=== PATIENT | male | born 1990 | race Caucasian/White ===

== ENCOUNTER 2018-11-25 04:46 | Inpatient (IN) | payer OTHER ==
[~2018-11-25] VITALS: Ht 172.7 cm; Wt 76.0 kg
[2018-11-25 04:54] VITALS: Ht 172.7 cm; Wt 76.0 kg
[2018-11-25 05:24] LABS: PLATELET COUNT 292 x10^3mcL (130-400); RED CELL DISTRIBUTION WIDTH 12.9 % (11.5-14.5)
[2018-11-25 05:39] LABS: BAND NEUTROPHIL 7 % (0-10); MONOCYTE 2 % (0-7); SEGMENTED NEUTROPHILS 85 % (37-75)
[2018-11-25 05:45] LABS: rbc morphology (normal/abnorm) ABNORMAL (NORMAL)
[2018-11-25 05:46] LABS: PLATELET MORPHOLOGY PLATELETS NORMAL; burr cell (echinocyte) 1+
[2018-11-25 06:23] LABS: CALCIUM 9.2 mg/dL (8.5-10.1); CARBON DIOXIDE 23.2 mmol/L (21-32); CHLORIDE SERUM 104 mmol/L (98-107); CREATININE SERUM 1.3 mg/dL (0.7-1.3); GFR1 > 60 mL/min; GLUCOSE SERUM 126 mg/dL (74-106); POTASSIUM SERUM 4.1 mmol/L (3.5-5.1); SODIUM SERUM 144 mmol/L (136-145)
[2018-11-25 06:28] LABS: ALBUMIN 4.4 g/dL (3.4-5.0); ALKALINE PHOSPHATASE 94 U/L (46-116); ALT/SGPT 22 U/L (16-63); AST/SGOT 16 U/L (15-37); BILIRUBIN TOTAL 0.69 mg/dL (0.20-1.00); LIPASE 112 IU/L (73-393); TOTAL PROTEIN, SERUM 8.1 g/dL (6.4-8.2)
[2018-11-25] MEDS ORDERED: ALBUTEROL0.63 MG/3 (10:32)
[2018-11-25] MEDS ORDERED: BREO ELLIPTA1 POW (10:32)
[2018-11-25 11:28] VITALS: BP 119/65
[2018-11-25 11:40] VITALS: BP 117/63
[2018-11-25 15:51] LABS: microscopic required? NO
[2018-11-25 15:57] LABS: urine erythrocyte NEGATIVE (NEGATIVE)
[2018-11-25 16:06] LABS: AMPHETAMINE QUAL UR NONE DETECTED (See below)
[2018-11-25 17:18] VITALS: BP 103/65
[2018-11-25 21:42] VITALS: BP 100/61
[2018-11-26 05:39] VITALS: BP 101/64
[2018-11-26 06:34] LABS: CALCIUM 8.1 mg/dL (8.5-10.1); CARBON DIOXIDE 28.3 mmol/L (21-32); CHLORIDE SERUM 108 mmol/L (98-107); CREATININE SERUM 1.1 mg/dL (0.7-1.3); GFR1 > 60 mL/min; GLUCOSE SERUM 108 mg/dL (74-106); MAGNESIUM 1.9 mg/dL (1.8-2.4); POTASSIUM SERUM 4.1 mmol/L (3.5-5.1); SODIUM SERUM 143 mmol/L (136-145)
[2018-11-26] MEDS ORDERED: ZOF4 PO (08:43)
[2018-11-26 09:01] LABS: PLATELET COUNT 239 x10^3mcL (130-400); RED CELL DISTRIBUTION WIDTH 13.1 % (11.5-14.5)
[2018-11-26 09:04] LABS: BASOPHIL % 0 % (0-2)
[2018-11-26 10:15] VITALS: BP 156/84
[2018-11-26 11:03] VITALS: BP 156/84
== END 2018-11-26 10:33 | disposition home or self-care (01) | DRG 918 ==
LOC: ED 04:46 → MU 10:57
PROVIDERS: Emergency Medicine; ADMIT Internal Medicine
DX: T62.91XA Toxic effect of unspecified noxious substance eaten as food, accidental (unintentional), initial encounter (principal); K56.7 Ileus, unspecified; K29.00 Acute gastritis without bleeding; J45.909 Unspecified asthma, uncomplicated; Y92.89 Other specified places as the place of occurrence of the external cause
CPT/HCPCS: J0696; J1885; J2270; J2405; J7030; J7042; J8597